=== PATIENT | male | born 2000 | race Caucasian/White ===

== ENCOUNTER 2021-02-09 13:50 | Emergency (ER) | payer MEDICAID, SELFPAY ==
--- NOTE | ~2021-02-09 | XR_ITS ---
EXAMINATION: XR CHEST CLINICAL INFORMATION: Cough. COMPARISON: Chest radiograph dated 01/13/2018. TECHNIQUE: Frontal view of the chest was obtained. FINDINGS: The lungs are clear. The cardiomediastinal silhouette is normal in size. There is no pleural effusion or pneumothorax. No acute osseous abnormality. XR/XR chest 1V IMPRESSION: No acute cardiopulmonary findings.
[2021-02-09 14:15] VITALS: BP 115/80; PULSE 96; RESP 18; TEMP 36.9; O2SAT 99; BMI 36.3
[2021-02-09 15:18] LABS: COVID-19 Test Negative (Negative)
--- NOTE | 2021-02-09 16:20 | ED.URI ---
HPI - URI/Sore Throat General Chief Complaint: Upper Respiratory Symptoms Stated Complaint: cough, runny nose Time Seen by Provider: 02/09/21 15:44 Source: patient Mode of arrival: ambulatory History of Present Illness HPI Narrative: 20-year-old male with no significant past medical history presenting to the ED complaining of nonproductive cough, nasal congestion/rhinorrhea and sore throat when coughing x2 days. Denies fever, chills, SOB, CP, recent travel, sick contacts, ear pain, LE edema MD elicited complaint: cough and nasal congestion Related Data Previous Rx's Medication Instructions Recorded acetaminophen 500 mg tablet 500 mg PO Q6H PRN #20 tab 02/09/21 (Tylenol Extra Strength) benzonatate 100 mg capsule 100 mg PO TID PRN #14 cap 02/09/21 (Tessalon Perles) fluticasone propionate 50 2 spray INTRANASAL DAILY #16 g 02/09/21 mcg/actuation nasal spray,suspension (Flonase Allergy Relief) Allergies Allergy/AdvReac Type Severity Reaction Status Date / Time No Known Allergies Allergy Verified 02/09/21 14:11 Review of Systems Review of Systems: Constitutional: No Fever, No Chills, No Fatigue, No Malaise ENT/Mouth: No Ear Pain, + Nasal Congestion, No Sinus Pain, No Hoarseness, + sore throat, + Rhinorrhea, No Swallowing Difficulty Eyes: No Eye Pain, No Swelling, No Redness Cardiovascular: No Chest Pain, No SOB, No Dyspnea on Exertion, No Orthopnea, No Edema, No Palpitations Respiratory: + Cough, No Sputum, No Wheezing, No Dyspnea Gastrointestinal: No Nausea, No Vomiting, No Diarrhea, No Constipation, No Abdominal pain Genitourinary: No Dysuria, No Urinary Frequency, No Hematuria,No Urgency, No Flank Pain Musculoskeletal: No joint pain, No Myalgias, No Joint Swelling Skin: No Skin Lesions, No rash Neuro: No Weakness, No Numbness, No Dizziness, No Headache Yes all other systems are reviewed and are negative [facility] Past Medical History Attestation statement: The following information was validated with the patient. Medical History (Updated 02/09/21 @ 16:27 by GUILLERMO Jackson) No pertinent past medical history Social History Social History Advance Directives: No Advance Directives Information Provided: Yes Physical Exam Vital Signs: Vital Signs: Last Vital Signs Temp 98.4 F 02/09/21 14:15 Pulse 96 02/09/21 14:15 Resp 18 02/09/21 14:15 BP 115/80 02/09/21 14:15 Pulse Ox 99 02/09/21 14:15 Body Mass Index 36.3 Const: General: cooperative, healthy appearing and no acute distress Orientation/consciousness: patient oriented x3 Limitations: no limitations HENMT: Head: Yes normal to inspection Ears: hearing grossly normal bilaterally, external ears normal and TM's normal bilaterally General nose exam: Normal external nose present Face and sinus: Yes normal facial exam Mouth: Normal oral and palatal mucosa present Throat: Yes posterior oropharynx normal, Yes tonsils normal, Yes uvula midline, No peritonsillar mass, No uvula laterally displaced and No uvular edema Eyes: General: appearance normal, both eyes and all related structures EOM: EOMs intact bilaterally Neck: Neck: Yes normal visual inspection and Yes no meningeal signs Resp: Effort & Inspection: normal respiratory effort Auscultation: clear to auscultation bilaterally, no crackles, no rales, no rhonchi and no wheezes Cardio: Rate: regular rate Heart sounds: S1 normal heart sound present and S2 normal heart sound present GI: Inspection: Yes normal to inspection Palpation (GI): Soft to palpation, nontender, no guarding and not rigid Skin: Rashes: no rashes Wounds: no wounds Neuro: General: patient oriented x3 and no meningeal signs Gait exam (Neuro): Normal gait present Extrem: General: Yes normal to inspection Course Course Course Narrative: -COVID-19 negative XR chest 1V IMPRESSION: No acute cardiopulmonary findings. > results discussed with patient including worrisome signs and symptoms and strict return precautions MDM - URI/Sore Throat MDM Narrative Medical decision making narrative: 20-year-old male with no significant past medical history presenting to the ED complaining of nonproductive cough, nasal congestion/rhinorrhea and sore throat when coughing x2 days. On exam VSS, NAD, lungs CTA, exam nonfocal. Concern for viral syndrome/COVID-19. Lower concern for pneumonia Plan: COVID-19 testing, CXR Medical Records Attestation: I reviewed the patient's medical records. Lab Data Attestation: I reviewed the patient's lab results. Labs: Lab Results 02/09/21 Range/Units 14:50 COVID-19 ([facility]) Negative (Negative) COVID-19 Clin Com See Note Discharge Plan Discharge Clinical Impression: Upper respiratory infection Qualifiers: URI type: unspecified viral URI Qualified Code(s): J06.9 - Acute upper respiratory infection, unspecified Patient Disposition: Home, Self-Care Instructions: Viral Syndrome (ED) Additional Instructions: You tested negative for COVID-19 X-ray was unremarkable Flonase as a nasal decongestion Tessalon Perles for cough Is important you to stay hydrated at home Take Tylenol & Motrin as needed Rest Follow-up with her doctor Return to the ED symptoms persist or worsen Prescriptions: New acetaminophen [Tylenol Extra Strength] 500 mg tablet 500 mg PO Q6H PRN (Reason: pain or fever) Qty: 20 RF: 0 benzonatate [Tessalon Perles] 100 mg capsule 100 mg PO TID PRN (Reason: cough) Qty: 14 RF: 0 fluticasone propionate [Flonase Allergy Relief] 50 mcg/actuation spray,suspension 2 spray intranasal DAILY Qty: 16 RF: 0 Referrals: [facility] [Primary Care Provider] - 2 days
--- NOTE | 2021-02-09 17:09 | PC.NURSE ---
PT EVALUATED BY PROVIDER. PT AWAKE, ALERT AND ORIENTED X 3. SKIN WARM AND DRY. RESP UNLABORED. DENIES N/V. NO ACUTE DISTRESS NOTED.
== END 2021-02-09 17:12 | disposition home or self-care (01) ==
PROVIDERS: Emergency Provider Emergency Medicine
DX: J06.9 Acute upper respiratory infection, unspecified (principal); R05.9 Cough, unspecified; D51.0 Vitamin B12 deficiency anemia due to intrinsic factor deficiency; Z79.899 Other long term (current) drug therapy; Z20.822 Contact with and (suspected) exposure to COVID-19
CPT/HCPCS: 36415; 71045; 87635; 99283